=== PATIENT | female | born 1950 | race Caucasian/White ===

== ENCOUNTER 2018-01-07 23:05 | Emergency (ER) | payer OTHER ==
[~2018-01-07] VITALS: Ht 165.1 cm; Wt 77.1 kg
[~2018-01-07 23:05] MED LIST: AMLO10TA4 PO; DOCU-141 PO; LISI10TA5 PO; OMEP20CA10 PO; SPIR25TA6 PO
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
[2018-01-08] MEDS ORDERED: SILVER SULFADIAZINE 1% CREAM 50 GM TP ONE (00:30)
[2018-01-08] MEDS ORDERED: SILVER SULFADIAZINE 1% CREAM 25 GM TUBE TP ONE (00:39)
--- NOTE | 2018-01-08 01:11 | NUR ---
Patient discharged to home in stable conditon. Written and verbal after care instructions given. Patient verbalizes understanding of instructions. right hand cleaned with soap and water, then placed silvadene ointment to area. patient then given dc instructions
[2018-01-08 01:14] VITALS: BP 116/69
== END 2018-01-08 01:14 | disposition home or self-care (01) ==
LOC: ER 23:11
DX: T23.101A Burn of first degree of right hand, unspecified site, initial encounter (principal); I10 Essential (primary) hypertension; K21.9 Gastro-esophageal reflux disease without esophagitis; X19.XXXA Contact with other heat and hot substances, initial encounter; Y93.89 Activity, other specified; Y92.89 Other specified places as the place of occurrence of the external cause; Y99.8 Other external cause status
CPT/HCPCS: 16000; 99284; A4663